=== PATIENT | female | born 1970 | race Caucasian/White ===

== ENCOUNTER 2016-12-11 13:32 | Emergency (ER) | payer SELFPAY ==
--- NOTE | 2016-12-11 14:39 | ED Physician Documentation ---
Upper Respiratory Symptoms - HISTORIAN Historian: patient - HPI Stated Complaint: congestion Chief Complaint: Cough/ Upper Respiratory Onset: other (7 days) Context: denies: recent foreign travel, insect bite(s), tick(s), recent chemotherapy Associated Symptoms: chills, runny nose, sinus pain, sinus drainage, sore throat , productive cough, headache. denies: chest pain, shortness of breath, hurts to breathe Worsened by Deep Breath: No Further Comments: yes (46 year old female patient presents with 1 week history of cough, congestion, nasal drainage, sore throat and body aches. Patient has not used any OTC medications. Does not have prescription insurance. Also complains of left knee pain, states she tore her meniscus in November 2015.) - ROS CONST/EYES: denies: weakness, eye redness, eye itching, other CVS/RESP: none LYMPH: denies: leg swelling, rash, swollen glands, ankle swelling, other GI/: none NEURO/PSYCH: denies: fainting, dizziness, confusion, anxiety, depression, other MS/SKIN: denies: joint pain, muscle aches, rash, other - PAST HX Lung Disease: COPD Other History: other (left meniscus tear) Allergies/Adverse Reactions: Allergies Allergy/AdvReac Type Severity Reaction Status Date / Time Sulfa (Sulfonamide Allergy Mild Hives Verified 12/11/16 13:52 Antibiotics) [Sulfa(Sulfonamide Antibiotics)] - SOCIAL HX Smoking History: cigarettes - FAMILY HX Family History: denies: none - VITAL SIGNS Vital Signs: Vital Signs Temp Pulse Resp BP Pulse Ox 97.9 F 65 16 163/72 94 12/11/16 13:46 12/11/16 13:46 12/11/16 13:46 12/11/16 13:46 12/11/16 13:46 - REVIEWED ASSESSMENTS Nursing Assessment Reviewed: Yes Vitals Reviewed: Yes Progress - Progress Progress: Reviewed discharge instructions with patient. Patient states she does not have prescription insurance. Coupons provided for Lisa for discount. ED Results Lab/Radiology - Orders Orders: ED Orders Category Date Time Status INFLUENZA A&B Stat Lab 12/11/16 14:45 Ordered Upper Respiratory Symptoms - EXAM General Appearance: mild distress EENT: eyes nml inspection, lids & conjunct. nml, PERRL, ear nml, pain over sinuses, frontal, maxillary, ethmoid, nose nml, airway nml, pharyngeal erythema Respiratory: no resp. 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 Treat your symptoms with over the counter medication. You may want to try Vicks rub on your chest and/or feet Cough drops as needed for cough and sore throat. Increase your fluid intake juices, hot tea, non-caffeinated beverages Use a humidifier in the room where you sleep. You can also sit in a steam filled bathroom 1-2 times a day. Tylenol or Ibuprofen as needed for fever, pain and body aches. Start daily allergy medication such as Claritin, Sharla or Zyrtec. Start a daily nasal spray such as Flonase or Nasonex You may benefit from the use of a netti pot follow package instructions. See your primary care doctor after you have completed your antibiotic if you symptoms have not resolved. Many times it takes multiple rounds of antibiotics to resolve a sinus infection. You may use ibuprofen 800mg up to three times a day as needed, do not use for more than 5 days in a row. Condition: Stable Disposition: 01 HOME, SELF-CARE Decision to Admit: NO Decision Time: 14:49
[2016-12-11 15:14] VITALS: BP 156/75
== END 2016-12-11 15:13 | disposition home or self-care (01) ==
LOC: ED 13:32
DX: J01.40 Acute pansinusitis, unspecified (principal); M25.562 Pain in left knee; G89.29 Other chronic pain
CPT/HCPCS: 87400; 99283

== ENCOUNTER 2017-02-27 12:45 | Emergency (ER) | payer SELFPAY ==
[2017-02-27 12:59] VITALS: BP 146/71
[2017-02-27] MEDS: KETOROLAC TROMETHAMINE 60 MG/2 ML VIAL IM ONE (13:00)
[2017-02-27] MEDS ORDERED: KETOROLAC TROMETHAMINE 60 MG/2 ML VIAL ONE (13:08)
--- NOTE | 2017-02-27 13:48 | ED Physician Documentation ---
General Adult - HISTORIAN Historian: patient - HPI Stated Complaint: back pain Chief Complaint: General Adult Additional Information: recurre;nt exab back kpain-no known trauma. has ch knee problem thinks limping aggravates pre existing problem-toradol usually helps - naproxen has helped some Onset: days ago (3) Timing: worse Severity: moderate - ROS CONST: chills CVS/RESP: denies: chest pain, shortness of breath GI/: none MS/SKIN/LYMPH: none NEURO/PSYCH: difficulty walking, depression. denies: headache, dizziness, tingling, numbness - PAST HX Past History: other (depression) Surgeries/Procedures: Allergies/Adverse Reactions: Allergies Allergy/AdvReac Type Severity Reaction Status Date / Time Sulfa (Sulfonamide Allergy Mild Hives Verified 12/11/16 13:52 Antibiotics) [Sulfa(Sulfonamide Antibiotics)] - SOCIAL HX Smoking History: less than 1 pack/day Alcohol Use: none Drug Use: none - FAMILY HX Family History: No - VITAL SIGNS Vital Signs: Vital Signs Temp Pulse Resp BP Pulse Ox 98.2 F 83 20 146/71 97 02/27/17 12:45 02/27/17 12:45 02/27/17 12:45 02/27/17 12:45 02/27/17 12:45 - REVIEWED ASSESSMENTS Nursing Assessment Reviewed: Yes Vitals Reviewed: Yes ED Results Lab/Radiology - Orders Orders: ED Orders Category Date Time Status Ketorolac Tromethamine [Toradol] Med 02/27/17 13:08 Discontinued 60 mg .ROUTE .STK-MED ONE Ketorolac Tromethamine [Toradol] Med 02/27/17 13:00 Discontinued 60 mg IM NOW ONE General Adult Physical Exam - PHYSICAL EXAM GENERAL APPEARANCE: moderate distress EENT: eye inspection normal NECK: normal inspection, supple RESPIRATORY: no resp distress, chest non-tender, breath sounds normal CVS: reg rate & rhythm, heart sounds normal ABDOMEN: soft, non-tender BACK: CVA tenderness (R), CVA tenderness (L) SKIN: warm/dry, normal color. No: cyanosis, diaphoresis, jaundice, mottled EXTREMITIES: non-tender, normal range of motion, no evidence of injury (rt knee has torn meniscus) NEURO: oriented X3, motor nml, mood/affect nml Discharge Clincal Impression: acute exaberation low back pain Referrals: Pk James MD [Primary Care Provider] - 2 Days Condition: Good Disposition: 01 HOME, SELF-CARE Decision to Admit: NO Decision Time: 13:48
== END 2017-02-27 13:42 | disposition home or self-care (01) ==
LOC: ED 12:45
DX: M54.5 Low back pain (principal)
CPT/HCPCS: 96372; 99283; J1885

== ENCOUNTER 2017-03-04 11:40 | Emergency (ER) | payer SELFPAY ==
[2017-03-04 12:35] VITALS: BP 122/68
--- NOTE | 2017-03-04 12:41 | ED Physician Documentation ---
Fall - HISTORIAN Historian: patient - HPI Stated Complaint: tripped and fell Chief Complaint: Fall Additional Information: tripped over pillow fell on all 4s on carpeted floor-able to amb w/min difficulty-c/o knees back rt wuist neck all injuries tolerable concerned re meniscus able to amb w/o sig difficulty Onset: today (0800) Where: home Context: tripped, lost balance r: mild Associated Symptoms:: no loss of consciousness. denies: dazed Location of Pain/Injury: lower back. denies: head, chest, abdomen, upper back, mid back Injury to Right Extremity: none Injury to Left Extremity: none (no contusion swelling or deformity-all injuries about the same - all minimal to moderate pt alert smiling and joking about fall) - ROS CONST: no problems NEURO: denies: dizziness, anxiety, depression MS/SKIN/LYMPH: neck pain, back pain. denies: weakness, numbness EYES/ENT: denies: problems with vision CVS/RESP: none - PAST HX Past History: other (depression takes celexa but out right now) Allergies/Adverse Reactions: Allergies Allergy/AdvReac Type Severity Reaction Status Date / Time Sulfa (Sulfonamide Allergy Mild Hives Verified 03/04/17 11:59 Antibiotics) [Sulfa(Sulfonamide Antibiotics)] Home Medications: Ambulatory Orders Medication Instructions Recorded Orphenadrine Citrate [Norflex] 100 mg PO BID #12 tab 03/04/17 - SOCIAL HX Smoking History: greater than 1 pack/day Alcohol Use: none Drug Use: none - FAMILY HX Family History: no significant history - VITAL SIGNS Vital Signs: Vital Signs Temp Pulse Resp BP Pulse Ox 97.8 F 71 14 128/70 97 03/04/17 11:40 03/04/17 11:40 03/04/17 11:40 03/04/17 11:40 03/04/17 11:40 - REVIEWED ASSESSMENTS Nursing Assessment Reviewed: Yes Vitals Reviewed: Yes Fall Physical Exam - Physical Exam General Appearance: mild distress Head: non-tender Neck: non-tender, painless ROM Resp/CVS: chest non-tender, no ecchymosis, breath sounds nml, no resp. distress , heart sounds nml Abdomen: soft, non-tender Neuro: oriented x3, CN's nml as tested, sensation nml, motor nml, mood/affect nml Skin: color nml, no rash. No: cyanosis, diaphoresis, pallor, ecchymosis, skin rash Back: other (lumbar sl tender to touch paravert but no spasm and no midline tenderness-palpating spinous processes) - [place] Coma Score Eyes Open: Spontaneous Speech: Oriented Motor: Obeys Commands Discharge Clincal Impression: fall w/very min tenderness Prescriptions: Orphenadrine Citrate [Norflex] 100 mg PO BID #12 tab Referrals: Primary Doctor,No [Primary Care Provider] - 2 Days Home Medications: Ambulatory Orders Orphenadrine Citrate [Norflex] 100 mg PO BID #12 tab 03/04/17 Condition: Good Disposition: 01 HOME, SELF-CARE Decision to Admit: NO Decision Time: 12:40
== END 2017-03-04 12:33 | disposition home or self-care (01) ==
LOC: ED 11:40
DX: W19.XXXA Unspecified fall, initial encounter (principal); Y93.9 Activity, unspecified; Y99.9 Unspecified external cause status
CPT/HCPCS: 99283

== ENCOUNTER 2017-03-08 13:59 | Emergency (ER) | payer SELFPAY ==
[2017-03-08 14:14] VITALS: BP 158/78
--- NOTE | 2017-03-08 14:21 | ED Physician Documentation ---
Sore Throat/Dental Pain - HISTORIAN Historian: patient - HPI Stated Complaint: Right Sided Jaw Pain Chief Complaint: Dental Pain Further Comments: yes (46 year old female patient presents with right jaw pain x 2 days. Old records reviewed, 3rd visit to ER this week.) - ROS CONST: recent illness (back strain) CVS/RESP: none GI/: denies: nausea, vomiting MS/SKIN/LYMPH: denies: muscle aches, rash, leg swelling NEURO/PSYCH: none - PAST HX Past History: none Other History: other (depression, left knee injury) Allergies/Adverse Reactions: Allergies Allergy/AdvReac Type Severity Reaction Status Date / Time Sulfa (Sulfonamide Allergy Mild Hives Verified 03/08/17 14:14 Antibiotics) [Sulfa(Sulfonamide Antibiotics)] Home Medications: Ambulatory Orders Medication Instructions Recorded Orphenadrine Citrate [Norflex] 100 mg PO BID #12 tab 03/04/17 Amoxicillin [Trimox] 500 mg PO TID #30 capsule 03/08/17 Citalopram Hydrobromide 20 mg PO DAILY 03/08/17 [Citalopram HBr] - SOCIAL HX Smoking History: cigarettes - FAMILY HX Family History: No - VITAL SIGNS Vital Signs: Vital Signs Temp Pulse Resp BP Pulse Ox 98 F 94 H 18 158/78 99 03/08/17 13:59 03/08/17 13:59 03/08/17 13:59 03/08/17 13:59 03/08/17 13:59 - REVIEWED ASSESSMENTS Nursing Assessment Reviewed: Yes Vitals Reviewed: Yes Progress - Progress Progress: Education on free clinics in [place] and [facility] dental clinic - phone numbers provided. Dental Pain Physical Exam - EXAM General Appearance: mild distress Head/Neck: head nml inspection, trachea midline, no lymphadenopathy, thyroid nml , neck nml inspection Mouth/Throat: lips nml, gums nml, pharynx nml, voice nml, no drooling, no air way problems, no thrush, membranes nml, widespread dental decay, other (#47 caries and #48 broken, filling in place; erythema in gumline) Respiratory: no resp. distress CVS: reg. rate & rhythm Neuro/Psych: No: weakness Discharge Clincal Impression: Pain, dental Fractured tooth Qualifiers: Encounter type: initial encounter Fracture type: closed Qualified Code(s): S02.5XXA - Fracture of tooth (traumatic), initial encounter for closed fracture Prescriptions: Amoxicillin [Trimox] 500 mg PO TID #30 capsule Referrals: Primary Doctor,Josefina [Primary Care Provider] - 2 Days Additional Instructions: See your dentist as soon as possible. You may want to try over the counter [place] paste on your broken tooth Use: Ora-gel over the counter as needed for dental pain. Ibuprofen 600-800mg three times a day with food as needed. Do not take for more than 5 days in a row. Alternate with Tylenol every 4hour as needed for pain. Limit your dose to less than 4 G per day. Home Medications: Ambulatory Orders Orphenadrine Citrate [Norflex] 100 mg PO BID #12 tab 03/04/17 Amoxicillin [Trimox] 500 mg PO TID #30 capsule 03/08/17 Citalopram Hydrobromide [Citalopram HBr] 20 mg PO DAILY 03/08/17 Condition: Stable Disposition: 01 HOME, SELF-CARE Decision to Admit: NO Decision Time: 14:18
[2017-03-08] MEDS ORDERED: ACETAMINOPHEN WITH CODEINE 300MG/30MG TABLET PO ONE (14:22)
== END 2017-03-08 14:25 | disposition home or self-care (01) ==
LOC: ED 13:59
DX: S02.5XXA Fracture of tooth (traumatic), initial encounter for closed fracture (principal)
CPT/HCPCS: 99283

== ENCOUNTER 2017-06-13 10:09 | Outpatient (CLI) | payer OTHER ==
[2017-06-13 10:31] LABS: BASOPHILS % 0.9 (0.0-1.5); EOSINOPHILS % 4.5 % (0.0-6.8); MEAN CORPUSCULAR HEMOGLOBIN 28.7 pg (28.0-34.0); MEAN CORPUSCULAR VOLUME 85.9 fl (80.0-100.0); MONOCYTES % 3.2 % (0.0-11.0); NEUTROPHILS # 4.7 # k/uL (1.4-7.7)
[2017-06-13 10:46] LABS: eGFR (African) > 60; eGFR (Non-African) > 60
== END 2017-06-13 10:10 ==
LOC: LAB 10:09
PROVIDERS: ATTEND Physician Assistant
DX: Z00.00 Encounter for general adult medical examination without abnormal findings (principal)
CPT/HCPCS: 36415; 80053; 80061; 84443; 85025

== ENCOUNTER 2017-11-26 09:46 | Emergency (ER) | payer OTHER ==
[2017-11-26 10:08] VITALS: BP 171/97
--- NOTE | 2017-11-26 10:15 | ED Physician Documentation ---
General Adult - HISTORIAN Historian: patient - HPI Stated Complaint: R leg and back pain Chief Complaint: General Adult (back, neck and leg pain) Additional Information: Deejay states that she slipped on some mud yesterday and reinjuried back and neck. Had some immediate pain. Has a history of torn meniscus and arthritis in the left knee. Was trying to protect left knee and right leg folded in underneath her. Now is having pain in the mid calf area shooting up tot he knee. Lower back and neck feel that she may have twisted something. Has some tingling in her toes in the right foot that comes and goes. Onset: days ago (829 yesterday) Timing: still present Severity: moderate Modifying Factors: otto, about the same sitting standing or laying down. Context: slipped on some mud Further Comments: no - ROS CONST: no problems. denies: fever, chills - PAST HX Past History: other (depression, bipolar) Other History: none Surgeries/Procedures: BTL, Allergies/Adverse Reactions: Allergies Allergy/AdvReac Type Severity Reaction Status Date / Time Sulfa (Sulfonamide Allergy Mild Hives Verified 03/08/17 14:14 Antibiotics) [Sulfa(Sulfonamide Antibiotics)] Home Medications: Ambulatory Orders Medication Instructions Recorded Naproxen [Naprosyn] 500 mg PO BID PRN #30 tablet 11/26/17 - SOCIAL HX Smoking History: greater than 1 pack/day (1 - 1 1/2 ppd) Alcohol Use: rarely Drug Use: none - FAMILY HX Family History: No - VITAL SIGNS Vital Signs: Vital Signs Temp Pulse Resp BP Pulse Ox 96.4 F L 66 16 171/97 98 11/26/17 09:50 11/26/17 09:50 11/26/17 09:50 11/26/17 09:50 11/26/17 09:50 - REVIEWED ASSESSMENTS Nursing Assessment Reviewed: Yes Vitals Reviewed: Yes ED Results Lab/Radiology - Radiology Radiology Impressions: Examination: Plain film lumbar spine History: pain post fall (DICOM Hx) Findings: 3 views of the lumbar spine demonstrate normal height. No anterior compression. Scattered osteophytes. Mild disc space narrowing L3/L4 through L5/ S1. Slight curvature to the left. Few vascular calcifications involving the abdominal aorta. Impression: Degenerative changes. No compression deformity. Examination: Plain film right knee History: RT KNEE PAIN POST FALL X 1 DAY AGO, HX OF TORN MENISCUS X 1 YEAR AGO ( Hx) Findings: 3 views of the right knee demonstrates tibial spine, medial/lateral, and patellar spurring. No fracture. No dislocation. No joint effusion. No soft tissue irregularity. Impression: Degenerative changes. No acute appearing osseous abnormality. General Adult Physical Exam - PHYSICAL EXAM GENERAL APPEARANCE: mild distress EENT: ENT inspection normal NECK: thyroid normal, supple, other (mild tenderness tot he right C6 area into neck, no bony abnl, no crepitus noted. ). No: lymphadenopathy RESPIRATORY: no resp distress, chest non-tender, breath sounds normal. No: wheezes, rales, rhonchi CVS: reg rate & rhythm, heart sounds normal, equal pulses, no murmur, no gallop BACK: no CVA tenderness, other (tenderness over the L5,6 area, R>L, decrease ROM due to pain, no bony abnl noted, no swelling noted. ) SKIN: warm/dry EXTREMITIES: edema (trace), tenderness (anterior right knee, no bony abnl noted. No pain with stretching med/lat collateral lig, ant/post drawer negative. No joint effusion noted. No crepitus noted. ), other (tenderness to palpation over the mid lateral calf area. Calf circum on the right 1 cm> left. No cords palpable, Frank's sign negative). No: normal range of motion NEURO: oriented X3, CN's nml as tested, motor nml, sensation nml, mood/affect nml, cognition normal Discharge Clincal Impression: Right calf pain Low back pain Qualifiers: Chronicity: acute Back pain laterality: right Sciatica presence: without sciatica Qualified Code(s): M54.5 - Low back pain Right knee pain Qualifiers: Chronicity: acute Qualified Code(s): M25.561 - Pain in right knee Referrals: Primary Doctor,No [Primary Care Provider] - 2 Days Additional Instructions: Try alternating a warm/cool compress to the areas of pain. Take Naprosyn twice a day with food as needed for pain. If symptoms ar enot improving in one week to see your primary care provider. Do exercises as instructed. Condition: Stable Disposition: 01 HOME, SELF-CARE Decision to Admit: NO Date of Decison to Admit: 11/26/17 Decision Time: 11:10
--- NOTE | 2017-11-26 12:11 | Diagnostic Imaging Report ---
CLARE BERNAL [facility] [address] [facility] [address] Report Submission Date: Nov 26, 2017 11:00:19 AM CDT Patient Study Name: FRED ABBOTT Date: Nov 26, 2017 10:32:04 AM CDT Modality Type: DX Gender: F Description: SPINE : 66 Institution: [facility] Physician: CLARE BERNAL Examination: Plain film lumbar spine History: pain post fall (DICOM Hx) Findings: 3 views of the lumbar spine demonstrate normal height. No anterior compression. Scattered osteophytes. Mild disc space narrowing L3/L4 through L5/ S1. Slight curvature to the left. Few vascular calcifications involving the abdominal aorta. Impression: Degenerative changes. No compression deformity. Electronically signed on Nov 26, 2017 11:00:19 AM CDT by: Erich HERNANDEZ
--- NOTE | 2017-11-26 12:11 | Diagnostic Imaging Report ---
CLARE BERNAL [facility] [address] [facility] [address] [address] Report Submission Date: Nov 26, 2017 11:02:26 AM CDT Patient Study Name: FRED ABBOTT Date: Nov 26, 2017 10:33:29 AM CDT Modality Type: DX Gender: F Description: LOWER EXTREMITY : 66 Institution: [facility] Physician: CLARE BERNAL Examination: Plain film right knee History: RT KNEE PAIN POST FALL X 1 DAY AGO, HX OF TORN MENISCUS X 1 YEAR AGO ( Hx) Findings: 3 views of the right knee demonstrates tibial spine, medial/lateral, and patellar spurring. No fracture. No dislocation. No joint effusion. No soft tissue irregularity. Impression: Degenerative changes. No acute appearing osseous abnormality. Electronically signed on Nov 26, 2017 11:02:26 AM CDT by: Erich HERNANDEZ
== END 2017-11-26 11:17 | disposition home or self-care (01) ==
LOC: ED 09:46
DX: M54.5 Low back pain (principal); M25.561 Pain in right knee
CPT/HCPCS: 72100; 73562; 99283

== ENCOUNTER 2017-12-06 16:36 | Outpatient (CLI) | payer OTHER | END 2017-12-06 16:43 | LOC: LABRHC 16:36 | PROVIDERS: ATTEND Physician Assistant | DX: Z12.4 Encounter for screening for malignant neoplasm of cervix (principal) | CPT/HCPCS: 88148; G0143 ==

== ENCOUNTER 2018-01-21 18:55 | Emergency (ER) | payer SELFPAY ==
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
[2018-01-21] MEDS ORDERED: KETOROLAC TROMETHAMINE 60 MG/2 ML VIAL IM ONE (20:57)
[2018-01-21] MEDS ORDERED: ORPHENADRINE CITRATE 60 MG/2ML IM ONE (20:58)
[2018-01-21] MEDS ORDERED: CYCLOBENZAPRINE HCL 5 MG TABLET PO ONE (22:35)
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
[2018-01-22 08:17] LABS: CANNABINOIDS NEGATIVE ng/mL (< 50); METHYLENEDIOXYMETHAMPHETAMINE NEGATIVE ng/mL (<500)
[2018-01-23 21:13] VITALS: BP 109/81
== END 2018-01-21 22:45 | disposition home or self-care (01) ==
LOC: ED 18:55
DX: M25.512 Pain in left shoulder (principal); M25.562 Pain in left knee; M54.2 Cervicalgia; V89.2XXA Person injured in unspecified motor-vehicle accident, traffic, initial encounter; Y93.9 Activity, unspecified; Y92.9 Unspecified place or not applicable; Y99.9 Unspecified external cause status
CPT/HCPCS: 72125; 73030; 73560; 80377; 81025; J1885; J2360; 96372; 99284; G0481

== ENCOUNTER 2018-09-21 19:07 | Emergency (ER) | payer OTHER ==
[2018-01-23 21:13] VITALS: BP 109/81
[2018-09-22 08:06] LABS: eGFR (Non-African) > 60
[2018-09-22 08:07] LABS: BASOPHILS % 0.6 (0.0-1.5); EOSINOPHILS % 2.7 % (0.0-6.8); MEAN CORPUSCULAR HEMOGLOBIN 28.6 pg (28.0-34.0); MONOCYTES % 3.9 % (0.0-11.0); NEUTROPHILS # 10.9 # k/uL (1.4-7.7)
== END 2018-09-21 21:45 | disposition home or self-care (01) ==
LOC: ED 19:07
DX: K52.9 Noninfective gastroenteritis and colitis, unspecified (principal)
CPT/HCPCS: 36415; 80053; 83690; 85025; 96374; 99282; 99284; J2405; J7030; S1016

== ENCOUNTER 2019-03-06 19:02 | Emergency (ER) | payer OTHER ==
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
[2019-03-06 19:27] VITALS: BP 152/96
[2019-03-06] MEDS ORDERED: KETOROLAC TROMETHAMINE 60 MG/2 ML VIAL IM ONE (19:44)
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
== END 2019-03-06 19:55 | disposition home or self-care (01) ==
LOC: ED 19:02
DX: S69.92XA Unspecified injury of left wrist, hand and finger(s), initial encounter (principal); W20.8XXA Other cause of strike by thrown, projected or falling object, initial encounter; Y99.8 Other external cause status
CPT/HCPCS: 73110; 73130; 96372; 99283; 99284; J1885